=== PATIENT | male | born 1990 | race Caucasian/White ===

== ENCOUNTER 2017-08-20 23:36 | Emergency (ER) | payer SELFPAY ==
[~2017-08-20] VITALS: Ht 167.6 cm; Wt 75.0 kg
[2017-08-20] MEDS ORDERED: INSU100V SQ (23:45)
[2017-08-20 23:48] LABS: GLUCOSE,POINT OF CARE 189 MG/DL (70-110)
[2017-08-21] LABS: BASOPHILS % (AUTO) 1.1 % (0.0-2.0); EOSINOPHILS % (AUTO) 2.4 % (1.0-6.0); HEMATOCRIT 43.2 % (41-53); HEMOGLOBIN 15.1 g/dL (13.5-17.5); LYMPHOCYTES # (AUTO) 2.2 K/uL (1.0-4.8); LYMPHOCYTES % (AUTO) 18.8 % (22.0-44.0); MEAN CORPUSCULAR HGB CONC 34.9 G/dL (31.0-37.0); MEAN CORPUSCULAR VOLUME 86 fL (80-100); MONOCYTES # (AUTO) 0.8 K/uL (0.1-1.0); MONOCYTES % (AUTO) 7.2 % (2.0-9.0); NEUTROPHILS # (AUTO) 8.2 K/uL (1.8-7.7); NEUTROPHILS % (AUTO) 70.5 % (40.0-70.0); PLATELET COUNT (AUTO) 277 K/uL (150-450); RED BLOOD CELL COUNT(AUTO) 5.03 MIL/uL (4.50-5.90); RED CELL DISTRIBUTION WIDTH 14.2 % (11.5-14.5)
[2017-08-21 00:11] LABS: ANION GAP 10 mmol/L (8-16); CALCIUM, TOTAL 8.6 mg/dL (8.8-10.5); CARBON DIOXIDE 26 mmol/L (22-29); CHLORIDE 102 mmol/L (98-107); CREATININE 0.77 mg/dL (0.60-1.30); GLOMERULAR FILTR. RATE CALC > 60 mL/min (>60); GLUCOSE,RANDOM 181 mg/dL (70-110); POTASSIUM 4.4 mmol/L (3.5-5.1); SODIUM SERUM 138 mmol/L (136-145); UREA NITROGEN, BLOOD 19 mg/dL (7-18)
[2017-08-21 00:17] LABS: ALANINE AMINOTRANSFERASE 42 U/L (12-78); ALKALINE PHOSPHATASE 255 U/L (46-116); ASPARTATE AMINOTRANSFERASE 59 U/L (15-37); BILIRUBIN,TOTAL 0.4 mg/dL (0.1-1.0); TOTAL PROTEIN, SERUM 7.3 g/dL (6.4-8.2)
[2017-08-21] MEDS ORDERED: MUPIROCIN CALCIUM 2% 22 GM OINTMENT TP ONE (00:45)
[2017-08-21 00:58] VITALS: BP 126/74
[2017-08-21 01:06] LABS: AMPHET/METH SCREEN,URINE NEGATIVE (NEGATIVE); BARBITURATE SCREEN, URINE NEGATIVE (NEGATIVE); BENZODIAZEPINES SCREEN,URINE NEGATIVE (NEGATIVE); CANNABINOID SCREEN,URINE POSITIVE (NEGATIVE); COCAINE SCREEN,URINE NEGATIVE (NEGATIVE); METHADONE SCREEN, URINE NEGATIVE (NEGATIVE); OPIATE SCREEN,URINE NEGATIVE (NEGATIVE)
[2017-08-21 01:07] LABS: PHENCYCLIDINE SCREEN,URINE NEGATIVE (NEGATIVE)
== END 2017-08-21 01:02 | disposition home or self-care (01) ==
LOC: EMS 23:37
DX: F20.9 Schizophrenia, unspecified (principal); E11.9 Type 2 diabetes mellitus without complications; F32.9 Major depressive disorder, single episode, unspecified; F12.10 Cannabis abuse, uncomplicated; F17.290 Nicotine dependence, other tobacco product, uncomplicated; Z79.4 Long term (current) use of insulin; Z89.432 Acquired absence of left foot
CPT/HCPCS: 36415; 80053; 80307; 82962; 85025; 99285; G0480

== ENCOUNTER 2020-01-12 22:51 | Inpatient (IN) | payer MEDICAID, OTHER, SELFPAY ==
[~2020-01-12] VITALS: Ht 165.1 cm; Wt 72.2 kg
[~2020-01-12 22:51] MED LIST: INSU100V SQ
[2020-01-13 01:10] LABS: AMPHET/METH SCREEN,URINE POSITIVE (NEGATIVE); BARBITURATE SCREEN, URINE NEGATIVE (NEGATIVE); BENZODIAZEPINES SCREEN,URINE NEGATIVE (NEGATIVE); CANNABINOID SCREEN,URINE POSITIVE (NEGATIVE); COCAINE SCREEN,URINE NEGATIVE (NEGATIVE); METHADONE SCREEN, URINE NEGATIVE (NEGATIVE); OPIATE SCREEN,URINE NEGATIVE (NEGATIVE)
[2020-01-13 01:15] LABS: BASOPHILS % (AUTO) 1.2 % (0.0-2.0); EOSINOPHILS % (AUTO) 1.6 % (1.0-6.0); HEMATOCRIT 39.7 % (41-53); HEMOGLOBIN 13.6 g/dL (13.5-17.5); LYMPHOCYTES # (AUTO) 2.2 K/uL (1.0-4.8); MEAN CORPUSCULAR HEMOGLOBIN 29.8 pg (26.0-34.0); MEAN CORPUSCULAR HGB CONC 34.3 G/dL (31.0-37.0); MEAN CORPUSCULAR VOLUME 87 fL (80-100); MONOCYTES # (AUTO) 0.7 K/uL (0.1-1.0); NEUTROPHILS # (AUTO) 7.3 K/uL (1.8-7.7); NEUTROPHILS % (AUTO) 69.2 % (40.0-70.0); PLATELET COUNT (AUTO) 262 K/uL (150-450); RED BLOOD CELL COUNT(AUTO) 4.56 MIL/uL (4.50-5.90); RED CELL DISTRIBUTION WIDTH 12.8 % (11.5-14.5)
[2020-01-13] MEDS ORDERED: DOXYCYCLINE HYCLATE 100 MG TABLET PO ONE (01:15)
[2020-01-13 01:18] LABS: PHENCYCLIDINE SCREEN,URINE NEGATIVE (NEGATIVE)
[2020-01-13 01:32] LABS: ALANINE AMINOTRANSFERASE 21 U/L (12-78); ALBUMIN 2.2 g/dL (3.4-5.0); ALKALINE PHOSPHATASE 113 U/L (46-116); ANION GAP 6 mmol/L (8-16); ASPARTATE AMINOTRANSFERASE 18 U/L (15-37); BILIRUBIN,TOTAL 0.3 mg/dL (0.1-1.0); CARBON DIOXIDE 27 mmol/L (22-29); CHLORIDE 97 mmol/L (98-107); CREATININE 1.09 mg/dL (0.60-1.30); GLOMERULAR FILTR. RATE CALC > 60 mL/min (>60); POTASSIUM 3.9 mmol/L (3.5-5.1); SODIUM SERUM 130 mmol/L (136-145); TOTAL PROTEIN, SERUM 6.3 g/dL (6.4-8.2); UREA NITROGEN, BLOOD 24 mg/dL (7-18)
[2020-01-13 02:00] LABS: GLUCOSE,RANDOM 516 mg/dL (70-110)
[2020-01-13] MEDS ORDERED: ZOLPIDEM TARTRATE 10 MG TABLET PO PRN (02:00)
[2020-01-13] MEDS ORDERED: HALOPERIDOL 5 MG TABLET PO PRN (02:00)
[2020-01-13] MEDS ORDERED: INSULIN REGULAR, HUMAN 100 UNITS/ML IVP ONE (02:15)
[2020-01-13] MEDS ORDERED: SODIUM CHLORIDE 0.9% 1,000 ML IV ONE ×2 (02:15→02:45)
[2020-01-13] MEDS ORDERED: POTASSIUM CHLORIDE 20 MEQ ER TABLET PO ONE (02:15)
[2020-01-13 03:01] LABS: COVID AG,FIA SOURCE NASOPHARYNGEAL
[2020-01-13 04:35] LABS: GLUCOSE,POINT OF CARE 149 MG/DL (70-110)
[2020-01-13 07:27] LABS: GLUCOSE,POINT OF CARE 234 MG/DL (70-110)
[2020-01-13] MEDS ORDERED: DOCUSATE SODIUM 100 MG CAPSULE PO PRN (08:15)
[2020-01-13] MEDS ORDERED: INSULIN LISPRO 100 UNITS/ML SQ PRN (08:15)
[2020-01-13] MEDS ORDERED: MAG HYDROX/AL HYDROX/SIMETH ES 30 ML SUSPENSION UDCUP PO PRN (08:15)
[2020-01-13] MEDS ORDERED: MAGNESIUM HYDROXIDE SUSPENSION 30 ML UDCUP PO PRN (08:15)
[2020-01-13] MEDS ORDERED: ALBUTEROL SULFATE HFA 90 MCG/PUFF 8 GM INHALER IH PRN (08:15)
[2020-01-13] MEDS ORDERED: ACETAMINOPHEN 325 MG TABLET PO PRN (08:15)
[2020-01-13] MEDS ORDERED: NICOTINE 14 MG/24 HOUR PATCH TD PRN (08:15)
[2020-01-13] MEDS ORDERED: CloNIDine HCL 0.1 MG TABLET PO PRN (08:15)
[2020-01-13] MEDS ORDERED: GuaiFENesin/D-METHORPHAN [SUGAR-FREE] 200-20MG/10 ML SYRUP UDCUP PO PRN (08:15)
[2020-01-13] MEDS ORDERED: PETROLATUM,WHITE 28 GM JELLY TP PRN (08:15)
[2020-01-13] MEDS ORDERED: GLUCAGON,HUMAN RECOMBINANT 1 MG VIAL IM PRN (08:15)
[2020-01-13] MEDS ORDERED: ONDANSETRON HCL 4 MG TABLET PO PRN (08:15)
[2020-01-13] MEDS ORDERED: LOPERAMIDE HCL 2 MG CAPSULE PO PRN (08:15)
[2020-01-13 09:34] VITALS: BP 149/95
[2020-01-13] MEDS: INSULIN GLARGINE,HUM.REC.ANLOG 100 UNITS/ML SQ SCH ×2 (09:58→17:32)
[2020-01-13 10:04] LABS: GLUCOMETER DEV NAME(LOC) 3E.I 2; GLUCOSE,POINT OF CARE 269 MG/DL (70-110)
[2020-01-13 11:03] VITALS: BP 149/95
[2020-01-13 11:21] LABS: GLUCOMETER DEV NAME(LOC) 3E.I 2; GLUCOSE,POINT OF CARE 266 MG/DL (70-110)
[2020-01-13] MEDS ORDERED: INFLUENZA VIRUS VACCINE QVS 2020-21 (6MO+)/PF 60 MCG/0.5 ML SYRINGE IM ONE (13:45)
[2020-01-13] MEDS ORDERED: DEXTROSE 50%-WATER 25 GM/50 ML SYRINGE IVP PRN (13:45)
[2020-01-13] MEDS: NICOTINE 14 MG/24 HOUR PATCH TD SCH (14:35)
[2020-01-13 16:00] VITALS: BP 132/89
[2020-01-13 16:55] LABS: GLUCOMETER DEV NAME(LOC) 3E.I 2; GLUCOSE,POINT OF CARE 101 MG/DL (70-110)
[2020-01-13] MEDS: LORazepam 2 MG TABLET PO PRN (19:27)
[2020-01-13] MEDS: INSULIN LISPRO 100 UNITS/ML SQ PRN (20:59)
[2020-01-13 21:11] LABS: GLUCOMETER DEV NAME(LOC) 3E.I 2; GLUCOSE,POINT OF CARE 360 MG/DL (70-110)
[2020-01-14 05:53] LABS: GLUCOMETER DEV NAME(LOC) 3E.I 2; GLUCOSE,POINT OF CARE 132 MG/DL (70-110)
[2020-01-14 06:46] LABS: CHOL/HDL RATIO 2.8 (4.2-7.3)
[2020-01-14] MEDS: INSULIN LISPRO 100 UNITS/ML SQ PRN ×3 (07:01→21:05)
[2020-01-14] MEDS: NICOTINE 14 MG/24 HOUR PATCH TD SCH ×2 (09:00→12:19)
[2020-01-14] MEDS: DOXYCYCLINE HYCLATE 100 MG TABLET PO SCH (09:17)
[2020-01-14 09:18] VITALS: BP 116/75
[2020-01-14] MEDS: INSULIN GLARGINE,HUM.REC.ANLOG 100 UNITS/ML SQ SCH ×2 (09:18→17:45)
[2020-01-14 11:29] LABS: GLUCOMETER DEV NAME(LOC) 3E.I 2; GLUCOSE,POINT OF CARE 203 MG/DL (70-110)
[2020-01-14 16:00] VITALS: BP 132/80
[2020-01-14 17:04] LABS: GLUCOMETER DEV NAME(LOC) 3E.I 2; GLUCOSE,POINT OF CARE 148 MG/DL (70-110)
[2020-01-14 21:11] LABS: GLUCOMETER DEV NAME(LOC) 3E.I 2; GLUCOSE,POINT OF CARE 150 MG/DL (70-110)
[2020-01-15 00:45] VITALS: BP 122/75
[2020-01-15] MEDS: IBUPROFEN 400 MG TABLET PO PRN (00:51)
[2020-01-15 06:32] LABS: GLUCOMETER DEV NAME(LOC) 3E.I 2; GLUCOSE,POINT OF CARE 250 MG/DL (70-110)
[2020-01-15] MEDS: INSULIN LISPRO 100 UNITS/ML SQ PRN ×2 (06:57→11:58)
[2020-01-15] MEDS ORDERED: INFLUENZA VIRUS VACCINE QVS 2020-21 (6MO+)/PF 60 MCG/0.5 ML SYRINGE IM ONE (07:45)
[2020-01-15 08:00] VITALS: BP 124/77
[2020-01-15] MEDS: RisperiDONE 1 MG TABLET PO SCH ×2 (09:25→16:33)
[2020-01-15] MEDS: CITALOPRAM HYDROBROMIDE 20 MG TABLET PO SCH (09:26)
[2020-01-15] MEDS: DOXYCYCLINE HYCLATE 100 MG TABLET PO SCH (09:28)
[2020-01-15] MEDS: INSULIN GLARGINE,HUM.REC.ANLOG 100 UNITS/ML SQ SCH ×2 (09:35→17:36)
[2020-01-15] MEDS: NICOTINE 14 MG/24 HOUR PATCH TD SCH (11:43)
[2020-01-15 12:00] LABS: GLUCOMETER DEV NAME(LOC) 3E.I 2; GLUCOSE,POINT OF CARE 310 MG/DL (70-110)
[2020-01-15 16:00] VITALS: BP 123/79
[2020-01-15] MEDS: LORazepam 2 MG TABLET PO PRN (16:33)
[2020-01-15 16:46] LABS: GLUCOMETER DEV NAME(LOC) 3E.I 2; GLUCOSE,POINT OF CARE 109 MG/DL (70-110)
[2020-01-15 21:28] LABS: GLUCOMETER DEV NAME(LOC) 3E.I 2; GLUCOSE,POINT OF CARE 440 MG/DL (70-110)
[2020-01-15] MEDS ORDERED: INSULIN LISPRO 100 UNITS/ML SQ ONE (22:00)
[2020-01-16 01:34] LABS: GLUCOMETER DEV NAME(LOC) 3E.I 2; GLUCOSE,POINT OF CARE 36 MG/DL (70-110)
[2020-01-16 02:11] LABS: GLUCOMETER DEV NAME(LOC) 3E.I 2; GLUCOSE,POINT OF CARE 146 MG/DL (70-110)
[2020-01-16 04:07] VITALS: BP 119/60
[2020-01-16 07:00] LABS: GLUCOMETER DEV NAME(LOC) 3E.I 2; GLUCOSE,POINT OF CARE 288 MG/DL (70-110)
[2020-01-16] MEDS: INSULIN LISPRO 100 UNITS/ML SQ PRN ×4 (07:13→21:02)
[2020-01-16] MEDS: RisperiDONE 1 MG TABLET PO SCH ×2 (10:00→16:43)
[2020-01-16] MEDS: LORazepam 2 MG TABLET PO PRN (10:00)
[2020-01-16] MEDS: MULTIVITAMINS WITH MINERALS, THERAPEUTIC TABLET PO SCH (10:00)
[2020-01-16] MEDS: CITALOPRAM HYDROBROMIDE 20 MG TABLET PO SCH (10:00)
[2020-01-16] MEDS: DOXYCYCLINE HYCLATE 100 MG TABLET PO SCH (10:00)
[2020-01-16] MEDS: INSULIN GLARGINE,HUM.REC.ANLOG 100 UNITS/ML SQ SCH ×2 (10:08→17:19)
[2020-01-16 10:30] VITALS: BP 113/66
[2020-01-16 11:53] LABS: GLUCOMETER DEV NAME(LOC) 3E.I 2; GLUCOSE,POINT OF CARE 323 MG/DL (70-110)
[2020-01-16 16:33] VITALS: BP 110/75
[2020-01-16 17:02] LABS: GLUCOMETER DEV NAME(LOC) 3E.I 2; GLUCOSE,POINT OF CARE 269 MG/DL (70-110)
[2020-01-16 21:05] LABS: GLUCOMETER DEV NAME(LOC) 3E.I 2; GLUCOSE,POINT OF CARE 330 MG/DL (70-110)
[2020-01-17 06:26] LABS: GLUCOMETER DEV NAME(LOC) 3E.I 2; GLUCOSE,POINT OF CARE 236 MG/DL (70-110)
[2020-01-17] MEDS: INSULIN LISPRO 100 UNITS/ML SQ PRN ×3 (06:48→21:20)
[2020-01-17] MEDS: MULTIVITAMINS WITH MINERALS, THERAPEUTIC TABLET PO SCH (09:16)
[2020-01-17] MEDS: RisperiDONE 1 MG TABLET PO SCH ×2 (09:16→16:22)
[2020-01-17] MEDS: CITALOPRAM HYDROBROMIDE 20 MG TABLET PO SCH (09:16)
[2020-01-17] MEDS: NICOTINE 14 MG/24 HOUR PATCH TD SCH (09:27)
[2020-01-17] MEDS: INSULIN GLARGINE,HUM.REC.ANLOG 100 UNITS/ML SQ SCH ×2 (09:33→17:20)
[2020-01-17 09:36] VITALS: BP 126/79
[2020-01-17] MEDS: DOXYCYCLINE HYCLATE 100 MG TABLET PO SCH (10:24)
[2020-01-17 11:32] LABS: GLUCOMETER DEV NAME(LOC) 3E.I 2; GLUCOSE,POINT OF CARE 272 MG/DL (70-110)
[2020-01-17 12:58] VITALS: BP 117/68
[2020-01-17] MEDS: LORazepam 2 MG TABLET PO PRN (16:22)
[2020-01-17 16:29] VITALS: BP 133/83
[2020-01-17 16:49] LABS: GLUCOMETER DEV NAME(LOC) 3E.I 2; GLUCOSE,POINT OF CARE 405 MG/DL (70-110)
[2020-01-17] MEDS ORDERED: INSULIN LISPRO 100 UNITS/ML SQ ONE (17:15)
[2020-01-17 21:07] LABS: GLUCOMETER DEV NAME(LOC) 3E.I 2; GLUCOSE,POINT OF CARE 286 MG/DL (70-110)
[2020-01-18 06:17] LABS: GLUCOMETER DEV NAME(LOC) 3E.I 2; GLUCOSE,POINT OF CARE 248 MG/DL (70-110)
[2020-01-18] MEDS: INSULIN LISPRO 100 UNITS/ML SQ PRN ×4 (06:48→21:06)
[2020-01-18 06:50] LABS: ANION GAP 3 mmol/L (8-16); CALCIUM, TOTAL 8.7 mg/dL (8.8-10.5); CARBON DIOXIDE 29 mmol/L (22-29); CHLORIDE 104 mmol/L (98-107); CREATININE 0.93 mg/dL (0.60-1.30); GLOMERULAR FILTR. RATE CALC > 60 mL/min (>60); GLUCOSE,RANDOM 261 mg/dL (70-110); POTASSIUM 4.9 mmol/L (3.5-5.1); SODIUM SERUM 136 mmol/L (136-145); UREA NITROGEN, BLOOD 25 mg/dL (7-18)
[2020-01-18] MEDS: RisperiDONE 1 MG TABLET PO SCH ×2 (08:27→17:36)
[2020-01-18] MEDS: CITALOPRAM HYDROBROMIDE 20 MG TABLET PO SCH (08:27)
[2020-01-18] MEDS: MULTIVITAMINS WITH MINERALS, THERAPEUTIC TABLET PO SCH (08:28)
[2020-01-18] MEDS: DOXYCYCLINE HYCLATE 100 MG TABLET PO SCH (08:28)
[2020-01-18] MEDS ORDERED: GADOBUTROL 1 MMOL/ML 10 ML VIAL IVP ONE (08:37)
[2020-01-18] MEDS: INSULIN GLARGINE,HUM.REC.ANLOG 100 UNITS/ML SQ SCH ×2 (08:40→17:33)
[2020-01-18] MEDS: LORazepam 2 MG TABLET PO PRN ×2 (08:42→13:21)
[2020-01-18] MEDS: NICOTINE 14 MG/24 HOUR PATCH TD SCH (08:43)
[2020-01-18 09:43] VITALS: BP 126/79
[2020-01-18 12:44] LABS: GLUCOMETER DEV NAME(LOC) 3E.I 2; GLUCOSE,POINT OF CARE 286 MG/DL (70-110)
[2020-01-18 16:39] VITALS: BP 119/71
[2020-01-18 16:57] LABS: GLUCOMETER DEV NAME(LOC) 3E.I 2; GLUCOSE,POINT OF CARE 257 MG/DL (70-110)
[2020-01-18 21:06] LABS: GLUCOMETER DEV NAME(LOC) 3E.I 2; GLUCOSE,POINT OF CARE 148 MG/DL (70-110)
[2020-01-19 04:00] VITALS: BP 108/72
[2020-01-19] MEDS: LORazepam 2 MG TABLET PO PRN ×2 (04:05→11:03)
[2020-01-19 06:25] LABS: GLUCOMETER DEV NAME(LOC) 3E.I 2; GLUCOSE,POINT OF CARE 292 MG/DL (70-110)
[2020-01-19] MEDS: INSULIN LISPRO 100 UNITS/ML SQ PRN ×3 (07:20→21:37)
[2020-01-19] MEDS: RisperiDONE 1 MG TABLET PO SCH ×2 (09:53→17:21)
[2020-01-19] MEDS: CITALOPRAM HYDROBROMIDE 20 MG TABLET PO SCH (09:53)
[2020-01-19] MEDS: DOXYCYCLINE HYCLATE 100 MG TABLET PO SCH (09:53)
[2020-01-19] MEDS: MULTIVITAMINS WITH MINERALS, THERAPEUTIC TABLET PO SCH (09:53)
[2020-01-19] MEDS: INSULIN GLARGINE,HUM.REC.ANLOG 100 UNITS/ML SQ SCH ×2 (09:59→17:49)
[2020-01-19] MEDS: NICOTINE 14 MG/24 HOUR PATCH TD SCH (10:00)
[2020-01-19 10:12] VITALS: BP 119/78
[2020-01-19] MEDS ORDERED: RINGERS SOLUTION,LACTATED 1,000 ML IV ONE ×2 (11:15→11:25)
[2020-01-19 11:22] LABS: GLUCOMETER DEV NAME(LOC) 3E.I 2; GLUCOSE,POINT OF CARE 354 MG/DL (70-110)
[2020-01-19] MEDS ORDERED: FentaNYL CITRATE-PF 100 MCG/2 ML VIAL IVP PRN (11:30)
[2020-01-19] MEDS ORDERED: HYDROmorphone 2 MG/ML SYRINGE IVP PRN (11:30)
[2020-01-19] MEDS ORDERED: BUPIVACAINE HCL/PF 0.5% 30 ML VIAL ONE (11:35)
[2020-01-19] MEDS ORDERED: SODIUM CL IRRIG SOLN BAG 0 ML IRRIG ONE (11:35)
[2020-01-19] MEDS ORDERED: SODIUM CHLORIDE 0.9% 10 ML ONE (11:35)
[2020-01-19] MEDS ORDERED: LIDOCAINE/PF 1% 30 ML VIAL ONE (11:35)
[2020-01-19] MEDS ORDERED: BACITRACIN 50,000 UNITS/VIAL ONE (11:36)
[2020-01-19] MEDS ORDERED: SODIUM CHLORIDE 0.9% 1,000 ML ONE (12:03)
[2020-01-19 16:41] VITALS: BP 122/71
[2020-01-19 17:41] LABS: GLUCOMETER DEV NAME(LOC) 3E.I 2; GLUCOSE,POINT OF CARE 459 MG/DL (70-110)
[2020-01-19] MEDS ORDERED: INSULIN LISPRO 100 UNITS/ML SQ ONE (17:45)
[2020-01-19 18:32] VITALS: BP 120/74
[2020-01-19] MEDS: IBUPROFEN 400 MG TABLET PO PRN (18:32)
[2020-01-19 19:54] LABS: GLUCOMETER DEV NAME(LOC) 3E.I 2; GLUCOSE,POINT OF CARE 362 MG/DL (70-110)
[2020-01-19] MEDS: OXYGEN THERAPY IH SCH (20:00)
[2020-01-19 21:47] LABS: GLUCOMETER DEV NAME(LOC) 3E.I 2; GLUCOSE,POINT OF CARE 308 MG/DL (70-110)
[2020-01-20 02:25] VITALS: BP 116/79
[2020-01-20] MEDS ORDERED: MIDAZOLAM HCL 2 MG/2 ML VIAL IVP ONE (06:00)
[2020-01-20] MEDS ORDERED: KETAMINE HCL 50 MG/ML 10 ML VIAL IVP ONE (06:00)
[2020-01-20] MEDS ORDERED: FentaNYL CITRATE-PF 100 MCG/2 ML VIAL IVP ONE (06:00)
[2020-01-20 06:22] LABS: GLUCOMETER DEV NAME(LOC) 3E.I 2; GLUCOSE,POINT OF CARE 172 MG/DL (70-110)
[2020-01-20] MEDS: IBUPROFEN 400 MG TABLET PO PRN ×2 (06:26→15:01)
[2020-01-20 07:04] LABS: BASOPHILS % (AUTO) 0.8 % (0.0-2.0); EOSINOPHILS % (AUTO) 2.3 % (1.0-6.0); HEMATOCRIT 37.5 % (41-53); HEMOGLOBIN 12.6 g/dL (13.5-17.5); LYMPHOCYTES # (AUTO) 2.6 K/uL (1.0-4.8); MEAN CORPUSCULAR HEMOGLOBIN 29.9 pg (26.0-34.0); MEAN CORPUSCULAR HGB CONC 33.6 G/dL (31.0-37.0); MEAN CORPUSCULAR VOLUME 89 fL (80-100); MONOCYTES % (AUTO) 8.3 % (2.0-9.0); NEUTROPHILS # (AUTO) 8.2 K/uL (1.8-7.7); NEUTROPHILS % (AUTO) 67.6 % (40.0-70.0); PLATELET COUNT (AUTO) 255 K/uL (150-450); RED BLOOD CELL COUNT(AUTO) 4.22 MIL/uL (4.50-5.90); RED CELL DISTRIBUTION WIDTH 12.6 % (11.5-14.5)
[2020-01-20 07:15] LABS: ANION GAP 2 mmol/L (8-16); CALCIUM, TOTAL 8.6 mg/dL (8.8-10.5); CARBON DIOXIDE 31 mmol/L (22-29); CHLORIDE 102 mmol/L (98-107); CREATININE 0.85 mg/dL (0.60-1.30); GLOMERULAR FILTR. RATE CALC > 60 mL/min (>60); GLUCOSE,RANDOM 252 mg/dL (70-110); POTASSIUM 4.7 mmol/L (3.5-5.1); SODIUM SERUM 135 mmol/L (136-145); UREA NITROGEN, BLOOD 27 mg/dL (7-18)
[2020-01-20] MEDS: INSULIN LISPRO 100 UNITS/ML SQ PRN ×3 (07:22→17:26)
[2020-01-20 09:00] VITALS: BP 120/76
[2020-01-20] MEDS: MULTIVITAMINS WITH MINERALS, THERAPEUTIC TABLET PO SCH (09:42)
[2020-01-20] MEDS: DOXYCYCLINE HYCLATE 100 MG TABLET PO SCH (09:42)
[2020-01-20] MEDS: CITALOPRAM HYDROBROMIDE 20 MG TABLET PO SCH (09:42)
[2020-01-20] MEDS: RisperiDONE 1 MG TABLET PO SCH ×2 (09:42→16:20)
[2020-01-20] MEDS: NICOTINE 14 MG/24 HOUR PATCH TD SCH (09:43)
[2020-01-20] MEDS: INSULIN GLARGINE,HUM.REC.ANLOG 100 UNITS/ML SQ SCH ×2 (10:00→17:25)
[2020-01-20 10:14] LABS: GLUCOMETER DEV NAME(LOC) 3E.I 2; GLUCOSE,POINT OF CARE 371 MG/DL (70-110)
[2020-01-20 12:52] LABS: GLUCOMETER DEV NAME(LOC) 3E.I 2; GLUCOSE,POINT OF CARE 345 MG/DL (70-110)
[2020-01-20 16:30] VITALS: BP 128/81
[2020-01-20 17:17] LABS: GLUCOMETER DEV NAME(LOC) 3E.I 2; GLUCOSE,POINT OF CARE 221 MG/DL (70-110)
[2020-01-20] MEDS: LORazepam 2 MG TABLET PO PRN (19:04)
[2020-01-20 20:24] LABS: GLUCOMETER DEV NAME(LOC) 3E.I 2; GLUCOSE,POINT OF CARE 117 MG/DL (70-110)
[2020-01-21 05:52] LABS: GLUCOMETER DEV NAME(LOC) 3E.I 2; GLUCOSE,POINT OF CARE 171 MG/DL (70-110)
[2020-01-21 06:41] VITALS: BP 112/71
[2020-01-21] MEDS: INSULIN LISPRO 100 UNITS/ML SQ PRN ×4 (06:55→21:46)
[2020-01-21] MEDS: IBUPROFEN 400 MG TABLET PO PRN (07:26)
[2020-01-21] MEDS: OXYGEN THERAPY IH SCH ×3 (08:00→20:00)
[2020-01-21] MEDS: RisperiDONE 1 MG TABLET PO SCH ×2 (08:14→16:18)
[2020-01-21] MEDS: MULTIVITAMINS WITH MINERALS, THERAPEUTIC TABLET PO SCH (08:14)
[2020-01-21] MEDS: CITALOPRAM HYDROBROMIDE 20 MG TABLET PO SCH (08:14)
[2020-01-21] MEDS: LEVOFLOXACIN 750 MG TABLET PO SCH (08:15)
[2020-01-21] MEDS: DOXYCYCLINE HYCLATE 100 MG TABLET PO SCH (08:15)
[2020-01-21] MEDS: NICOTINE 14 MG/24 HOUR PATCH TD SCH (08:15)
[2020-01-21 08:49] VITALS: BP 114/70
[2020-01-21] MEDS: INSULIN GLARGINE,HUM.REC.ANLOG 100 UNITS/ML SQ SCH ×2 (09:58→17:33)
[2020-01-21 10:15] LABS: GLUCOMETER DEV NAME(LOC) 3E.I 2; GLUCOSE,POINT OF CARE 323 MG/DL (70-110)
[2020-01-21 11:43] LABS: GLUCOMETER DEV NAME(LOC) 3E.I 2; GLUCOSE,POINT OF CARE 303 MG/DL (70-110)
[2020-01-21] MEDS: LORazepam 2 MG TABLET PO PRN (16:18)
[2020-01-21 16:59] VITALS: BP 123/75
[2020-01-21 17:31] LABS: GLUCOMETER DEV NAME(LOC) 3E.I 2; GLUCOSE,POINT OF CARE 247 MG/DL (70-110)
[2020-01-21 21:50] LABS: GLUCOMETER DEV NAME(LOC) 3E.I 2; GLUCOSE,POINT OF CARE 283 MG/DL (70-110)
[2020-01-22 05:24] VITALS: BP 122/84
[2020-01-22 05:34] LABS: GLUCOMETER DEV NAME(LOC) 3E.I 2; GLUCOSE,POINT OF CARE 123 MG/DL (70-110)
[2020-01-22] MEDS: INSULIN LISPRO 100 UNITS/ML SQ PRN ×4 (07:07→21:18)
[2020-01-22] MEDS: RisperiDONE 1 MG TABLET PO SCH ×2 (08:21→16:27)
[2020-01-22] MEDS: CITALOPRAM HYDROBROMIDE 20 MG TABLET PO SCH (08:21)
[2020-01-22] MEDS: LEVOFLOXACIN 750 MG TABLET PO SCH (08:21)
[2020-01-22] MEDS: MULTIVITAMINS WITH MINERALS, THERAPEUTIC TABLET PO SCH (08:21)
[2020-01-22] MEDS: NICOTINE 14 MG/24 HOUR PATCH TD SCH (08:22)
[2020-01-22] MEDS: INSULIN GLARGINE,HUM.REC.ANLOG 100 UNITS/ML SQ SCH ×2 (08:26→17:34)
[2020-01-22 08:34] LABS: GLUCOMETER DEV NAME(LOC) 3E.I 2; GLUCOSE,POINT OF CARE 301 MG/DL (70-110)
[2020-01-22 10:09] VITALS: BP 135/82
[2020-01-22] MEDS: LORazepam 2 MG TABLET PO PRN (11:08)
[2020-01-22 11:29] LABS: GLUCOMETER DEV NAME(LOC) 3E.I 2; GLUCOSE,POINT OF CARE 271 MG/DL (70-110)
[2020-01-22 15:32] LABS: GLUCOMETER DEV NAME(LOC) 3E.I 2; GLUCOSE,POINT OF CARE 321 MG/DL (70-110)
[2020-01-22 16:38] LABS: GLUCOMETER DEV NAME(LOC) 3E.I 2; GLUCOSE,POINT OF CARE 296 MG/DL (70-110)
[2020-01-22 17:09] VITALS: BP 111/76
[2020-01-22] MEDS: OXYGEN THERAPY IH SCH (20:00)
[2020-01-22 21:28] LABS: GLUCOMETER DEV NAME(LOC) 3E.I 2; GLUCOSE,POINT OF CARE 219 MG/DL (70-110)
[2020-01-23 05:29] LABS: GLUCOMETER DEV NAME(LOC) 3E.I 2; GLUCOSE,POINT OF CARE 237 MG/DL (70-110)
[2020-01-23 05:29] LABS: GLUCOMETER DEV NAME(LOC) 3E.I 2; GLUCOSE,POINT OF CARE 181 MG/DL (70-110)
[2020-01-23] MEDS: INSULIN LISPRO 100 UNITS/ML SQ PRN ×4 (06:58→20:47)
[2020-01-23 08:00] VITALS: BP 130/76
[2020-01-23] MEDS: OXYGEN THERAPY IH SCH ×2 (08:00→20:00)
[2020-01-23] MEDS: CITALOPRAM HYDROBROMIDE 20 MG TABLET PO SCH (09:11)
[2020-01-23] MEDS: LEVOFLOXACIN 750 MG TABLET PO SCH (09:11)
[2020-01-23] MEDS: RisperiDONE 1 MG TABLET PO SCH ×2 (09:11→16:54)
[2020-01-23] MEDS: MULTIVITAMINS WITH MINERALS, THERAPEUTIC TABLET PO SCH (09:11)
[2020-01-23] MEDS: INSULIN GLARGINE,HUM.REC.ANLOG 100 UNITS/ML SQ SCH ×2 (09:15→17:22)
[2020-01-23] MEDS: NICOTINE 14 MG/24 HOUR PATCH TD SCH (09:15)
[2020-01-23 12:00] LABS: GLUCOMETER DEV NAME(LOC) 3E.I 2; GLUCOSE,POINT OF CARE 227 MG/DL (70-110)
[2020-01-23 16:42] VITALS: BP 129/79
[2020-01-23 17:14] LABS: GLUCOMETER DEV NAME(LOC) 3E.I 2; GLUCOSE,POINT OF CARE 248 MG/DL (70-110)
[2020-01-23 20:54] LABS: GLUCOMETER DEV NAME(LOC) 3E.I 2; GLUCOSE,POINT OF CARE 272 MG/DL (70-110)
[2020-01-24 04:50] VITALS: BP 112/69
[2020-01-24 05:26] LABS: GLUCOMETER DEV NAME(LOC) 3E.I 2; GLUCOSE,POINT OF CARE 177 MG/DL (70-110)
[2020-01-24] MEDS: INSULIN LISPRO 100 UNITS/ML SQ PRN ×2 (07:10→11:27)
[2020-01-24 08:00] VITALS: BP 112/80
[2020-01-24] MEDS: NICOTINE 14 MG/24 HOUR PATCH TD SCH (08:17)
[2020-01-24] MEDS: MULTIVITAMINS WITH MINERALS, THERAPEUTIC TABLET PO SCH (08:17)
[2020-01-24] MEDS: RisperiDONE 1 MG TABLET PO SCH (08:17)
[2020-01-24] MEDS: CITALOPRAM HYDROBROMIDE 20 MG TABLET PO SCH (08:17)
[2020-01-24] MEDS: LEVOFLOXACIN 750 MG TABLET PO SCH (08:18)
[2020-01-24] MEDS: INSULIN GLARGINE,HUM.REC.ANLOG 100 UNITS/ML SQ SCH (08:31)
[2020-01-24 08:38] LABS: GLUCOMETER DEV NAME(LOC) 3E.I 2; GLUCOSE,POINT OF CARE 172 MG/DL (70-110)
[2020-01-24 11:34] LABS: GLUCOMETER DEV NAME(LOC) 3E.I 2; GLUCOSE,POINT OF CARE 321 MG/DL (70-110)
[2020-01-24 20:14] LABS: GLUCOMETER DEV NAME(LOC) 6S.1; GLUCOSE,POINT OF CARE 302 MG/DL (70-110)
[2020-01-26 11:40] LABS: GLUCOMETER DEV NAME(LOC) 4E.2; GLUCOSE,POINT OF CARE 328 MG/DL (70-110)
== END 2020-01-24 16:00 | disposition short-term general hospital (02) | DRG 740 ==
LOC: EMS 22:53 → 3EI 01-13 01:55 → UNDOADMIN 01-13 01:55
PROVIDERS: ADMIT Psychiatry & Neurology Psychiatry; ATTEND Psychiatry & Neurology Psychiatry
PROC: 3E02340 Introduction of Influenza Vaccine into Muscle, Percutaneous Approach (ICD-10-PCS; principal; 2020-01-15)
PROC: 0QBN0ZZ Excision of Right Metatarsal, Open Approach (ICD-10-PCS; 2020-01-20)
DX: F25.1 Schizoaffective disorder, depressive type (principal); D64.9 Anemia, unspecified; E11.42 Type 2 diabetes mellitus with diabetic polyneuropathy; E11.621 Type 2 diabetes mellitus with foot ulcer; E11.65 Type 2 diabetes mellitus with hyperglycemia; E87.1 Hypo-osmolality and hyponatremia; L97.519 Non-pressure chronic ulcer of other part of right foot with unspecified severity; M86.171 Other acute osteomyelitis, right ankle and foot; E11.69 Type 2 diabetes mellitus with other specified complication; R45.851 Suicidal ideations; T81.31XA Disruption of external operation (surgical) wound, not elsewhere classified, initial encounter; B96.20 Unspecified Escherichia coli [E. coli] as the cause of diseases classified elsewhere; M86.172 Other acute osteomyelitis, left ankle and foot; B96.4 Proteus (mirabilis) (morganii) as the cause of diseases classified elsewhere; T87.43 Infection of amputation stump, right lower extremity; T87.44 Infection of amputation stump, left lower extremity; B95.61 Methicillin susceptible Staphylococcus aureus infection as the cause of diseases classified elsewhere; F12.90 Cannabis use, unspecified, uncomplicated; F15.10 Other stimulant abuse, uncomplicated; F32.9 Major depressive disorder, single episode, unspecified; Z20.828 Contact with and (suspected) exposure to other viral communicable diseases; Y83.8 Other surgical procedures as the cause of abnormal reaction of the patient, or of later complication, without mention of misadventure at the time of the procedure; Y92.230 Patient room in hospital as the place of occurrence of the external cause; Z91.5 Personal history of self-harm; Z23 Encounter for immunization; Z89.421 Acquired absence of other right toe(s); Z89.439 Acquired absence of unspecified foot; Z91.14 Patient's other noncompliance with medication regimen; Z79.899 Other long term (current) drug therapy; Z79.4 Long term (current) use of insulin
CPT/HCPCS: 73720; 73723; 85651; 87070; 87205; 87426; 88304; 88307; 88311; 90686; A9585; G0480; J1815; J2250; J3010; J3490; J7030; J7120